=== PATIENT | female | born 1985 | race Native Hawaiian/Other Pacific Islander ===

== ENCOUNTER 2018-07-11 17:19 | Emergency (ER) | payer OTHER ==
[~2018-07-11] VITALS: Ht 160 cm; Wt 44.5 kg
[2018-07-11 21:05] VITALS: BP 141/90; TEMP 98.1
== END 2018-07-11 21:06 | disposition home or self-care (01) ==
LOC: ED 17:19
DX: M25.512 Pain in left shoulder (principal); W06.XXXA Fall from bed, initial encounter; Y92.149 Unspecified place in prison as the place of occurrence of the external cause
CPT/HCPCS: 96372; 99283; J2270; J2405